=== PATIENT | male | born 1985 | race Caucasian/White ===

== ENCOUNTER 2019-09-25 08:06 | Emergency (ER) | payer OTHER ==
[2019-09-25 08:14] VITALS: TEMP 98.3
[2019-09-25] MEDS ORDERED: LIDOCAINE 1% INJ 10MG/ML (20 ML MDV) SQ ONE (08:20)
--- NOTE | 2019-09-25 08:22 | ED ---
Upper Extremity HPI - General Chief Complaint: Extremity Injury, Upper Stated Complaint: finger injury Time Seen by Provider: 09/25/19 08:15 Source: patient, RN notes reviewed Mode of arrival: ambulatory Limitations: no limitations - History of Present Illness Initial Comments: 33-year-old male presents emergency Department chief complaint laceration to his left hand fifth digit. Patient states that he was crying off the excess metal on a part. Patient states a guard was not completely bolted on states that he caught his finger on it. He is [id number] he states his tetanus is up-to-date within last 5 years. No paresthesias no decreased range of motion. - Related Data Previous Rx's Medication Instructions Recorded Cephalexin [Keflex] 500 mg PO Q6HR #28 cap 09/25/19 Allergies Allergy/AdvReac Type Severity Reaction Status Date / Time No Known Allergies Allergy Verified 09/25/19 08:14 Review of Systems ROS Statement: Those systems with pertinent positive or pertinent negative responses have been documented in the HPI. ROS Other: All systems not noted in ROS Statement are negative. Past Medical History Past Medical History: No Reported History History of Any Multi-Drug Resistant Organisms: None Reported Past Surgical History: No Surgical Hx Reported Past Psychological History: No Psychological Hx Reported Smoking Status: Former smoker Past Alcohol Use History: Occasional Past Drug Use History: Marijuana General Exam Limitations: no limitations General appearance: alert, in no apparent distress Head exam: Present: atraumatic, normocephalic, normal inspection Eye exam: Present: normal appearance, PERRL, EOMI. Absent: scleral icterus, conjunctival injection, periorbital swelling ENT exam: Present: normal exam, normal oropharynx, mucous membranes moist Neck exam: Present: normal inspection, full ROM. Absent: tenderness, meningismus, lymphadenopathy Respiratory exam: Present: normal lung sounds bilaterally. Absent: respiratory distress, wheezes, rales, rhonchi, stridor Cardiovascular Exam: Present: regular rate, normal rhythm, normal heart sounds. Absent: systolic murmur, diastolic murmur, rubs, gallop, clicks Extremities exam: Present: other (Left hand 2 cm laceration over the dorsal aspect of the fifth digit full range of motion neurovascular intact) Course Vital Signs 09/25/19 08:10 Temperature 98.3 F Pulse Rate 81 Respiratory 18 Rate Blood Pressure 172/92 O2 Sat by Pulse 99 Oximetry Procedures - Laceration Laceration #1 Consent Obtained: written consent Indication: laceration Site: upper extremity (Left hand fifth digit) Size (cm): 2 Description: linear Depth: simple, single layer Anesthetic Used: lidocaine 1%, without epi Anesthesia Technique: local infiltration Amount (mls): 5 Pre-repair: wound explored, irrigated extensively, deep structures intact, foreign body removed Type of Sutures: nylon Size of Sutures: 4-0 Number of Sutures: 4 Technique: simple, interrupted Patient Tolerated Procedure: well, no complications Medical Decision Making - Medical Decision Making X-ray was obtained, shows superficial foreign bodies, no bony injury. Patient's wound was thoroughly cleaned, foreign body removed, patient was placed on antibiotics with close follow-up. Disposition Clinical Impression: Laceration of finger of left hand Disposition: HOME SELF-CARE Condition: Stable Instructions (If sedation given, give patient instructions): Care For Your Stitches (ED), Finger Laceration (ED) Additional Instructions: Have sutures removed in 10 days.Please return to the Emergency Department if symptoms worsen or any other concerns. Prescriptions: Cephalexin [Keflex] 500 mg PO Q6HR #28 cap Is patient prescribed a controlled substance at d/c from ED?: No Referrals: Reed Harper MD [Primary Care Provider] - 1-2 days Time of Disposition: 09:28
--- NOTE | 2019-09-25 08:59 | XR ---
Fifth digit left hand HISTORY: Laceration 3 views of the fifth digit of the left hand There are punctate metallic density seen on the oblique view dorsal aspect of the proximal interphala ngeal joint, consistent with small foreign bodies. No fracture or dislocation. IMPRESSION: Suspect multiple punctate foreign bodies, at least 10 are suspected.
[2019-09-25 09:42] VITALS: BP 123/74; PULSE 78; RESP 16
== END 2019-09-25 09:36 | disposition home or self-care (01) ==
LOC: EC 08:06
DX: S61.227A Laceration with foreign body of left little finger without damage to nail, initial encounter (principal); Z87.891 Personal history of nicotine dependence; X58.XXXA Exposure to other specified factors, initial encounter; Y92.69 Other specified industrial and construction area as the place of occurrence of the external cause; Y99.0 Civilian activity done for income or pay
CPT/HCPCS: 73140; 99283; 12031; J2001

== ENCOUNTER → 2020-11-27 | Outpatient (CLI) | payer OTHER ==
--- NOTE | 2020-11-27 10:46 | US ---
EXAMINATION TYPE: US liver DATE OF EXAM: 11/27/2020 COMPARISON: NONE CLINICAL HISTORY: R74.8 Elevated liver enzymes. elevated liver enzymes EXAM MEASUREMENTS: Liver Length: 18.6 cm Gallbladder Wall: 0.2 cm CBD: 0.4 cm Right Kidney: 12.6 x 5.7 x 4.8 cm Technical limitations due to overlying bowel content Pancreas: Obscured by bowel gas Liver: enlarged, attenuating Gallbladder: multiple small stones Evidence for sonographic Gupta's sign: no CBD: appears wnl Right Kidney: no evidence of hydronephrosis IMPRESSION: 1. Hepatomegaly with underlying fatty hepatic infiltration. 2. Cholelithiasis.
== END | disposition home or self-care (01) ==
LOC: RADUSWWP 10:12
PROVIDERS: ATTEND Family Medicine
DX: K76.0 Fatty (change of) liver, not elsewhere classified (principal); K80.20 Calculus of gallbladder without cholecystitis without obstruction
CPT/HCPCS: 76705

== ENCOUNTER → 2023-05-25 | Outpatient (CLI) | payer OTHER ==
--- NOTE | 2023-05-25 14:24 | US ---
EXAMINATION TYPE: US arterial LE multi level DATE OF EXAM: 05/25/2023 2:09 PM CLINICAL INDICATION: Male, 37 years old with history of R09.89 SYM OF CIRCULATORY SYSTEM; History of: Smoker: Current Hypertension: Yes Diabetic: No Hyperlipidemia: No TIA/CVA: No Previous Vascular Surgery: No CAD: No PA: No Vascular Ulcers: No Claudication: Yes Gangrene: NO Right Brachial Pressure: 110 Left Brachial Pressure: 117 Ankle-Brachial Indices: Right: 0.66 Left: 0.77 Toe Brachial Indices: Right: 0.50 Left: 0.49 IMPRESSION: Abnormal ankle-brachial indices bilaterally suggestive of mild to moderate peripheral ar terial disease.
== END | disposition home or self-care (01) ==
LOC: RADUSWWP 12:51
PROVIDERS: ATTEND Family Medicine
DX: I10 Essential (primary) hypertension (principal); R09.89 Other specified symptoms and signs involving the circulatory and respiratory systems; Z87.891 Personal history of nicotine dependence
CPT/HCPCS: 93923

== ENCOUNTER → 2023-07-29 | Day surgery (SDC) | payer OTHER ==
[~2023-07-29] MED LIST: ALPRAZolam 0.25 MG TAB PO PRN; ASPIRIN 325 MG TAB PO PRN; HEPARIN SODIUM 1,000 UN/ML (10ML VL) IV ONE; HEPARIN SODIUM 1,000 UN/ML (10ML VL) ONE; IOPAMIDOL-370 100ML BTL INJ ONE; LIDOCAINE 1% INJ 10MG/ML (20 ML MDV) ONE; MIDAZOLAM 2 MG/2 ML VIAL IVP ONE; NALOXONE 0.4 MG/ML 1 ML VIAL IVP PRN; SODIUM CHLORIDE 0.9% 1,000 ML in EMPTY BAG 1 BAG IV ONE; SODIUM CHLORIDE 0.9% 1,000 ML in EMPTY BAG 1 BAG IV SCH; VERAPAMIL 2.5 MG/ML 2 ML AMP ONE; VERAPAMIL SYRINGE (5 MG/10 ML) INTRAARTER ONE; fentaNYL (PF) 50 MCG/1 ML VIAL IVP ONE; fentaNYL (PF) 50 MCG/ML 2 ML AMP ONE
[2023-07-29 07:54] LABS: Basophils # (A) 0.1 k/uL (0-0.2); Basophils % (A) 1 %; Eosinophils # (A) 0.2 k/uL (0-0.7); Eosinophils % (A) 2 %; HCT 46.1 % (39.0-53.0); HGB 15.3 gm/dL (13.0-17.5); Lymphocytes # (A) 2.3 k/uL (1.0-4.8); Lymphocytes % (A) 33 %; MCH 31.7 pg (25.0-35.0); MCHC 33.3 g/dL (31.0-37.0); MCV 95.2 fL (80.0-100.0); Mean Platelet Volume 6.7; Monocytes # (A) 0.4 k/uL (0-1.0); Monocytes % (A) 6 %; Neutrophils # (A) 3.8 k/uL (1.3-7.7); Neutrophils % (A) 55 %; Platelet Count 327 k/uL (150-450); RBC 4.85 m/uL (4.30-5.90); RDW 12.4 % (11.5-15.5); WBC 6.9 k/uL (3.8-10.6)
[2023-07-29 08:05] LABS: African American GFR (CKD) >90 (>60 ml/min/1.73 sqM); Anion Gap 12 mmol/L; Blood Urea Nitrogen 16 mg/dL (9-20); Calcium 9.8 mg/dL (8.4-10.2); Carbon Dioxide 26 mmol/L (22-30); Chloride 102 mmol/L (98-107); Glucose 91 mg/dL (74-99); Non-African American GFR(CKD) >90 (>60 ml/min/1.73 sqM); Potassium 4.3 mmol/L (3.5-5.1); Sodium 140 mmol/L (137-145)
[2023-07-29 08:31] VITALS: TEMP 97.6
[2023-07-29] MEDS: LIDOCAINE 1% INJ 10MG/ML (20 ML MDV) SQ ONE ×2 (09:29→09:38)
--- NOTE | 2023-07-29 10:07 | P.PCN ---
Date of Procedure: 07/29/23 Operative Findings: AN ABDOMINAL AORTOGRAM AND BILATERAL LOWER EXTREMITIES RUNOFF PERFORMING PHYSICIAN: Gino Ordonez MD PROCEDURE PERFORMED: 1. An abdominal aortogram 2. Bilateral lower extremities runoff 3. Ultrasound guided access of the right radial artery and right common femoral artery INDICATION: Bilateral lower extremity is intermittent claudication and this 37-year-old gentleman who underwent an ankle brachial index and came in to be abnormal bilaterally COMPLICATION: None LEVEL OF SEDATION: Moderate was sedation length of 22 APPROACH: Right common femoral artery PROCEDURE DESCRIPTION: After obtaining an informed consent the patient was brought to the cardiac microbiology laboratory manager. Initially the right common femoral artery was cannulated using micropuncture technique under ultrasound guidance the micropuncture wire passed easily then I placed the micropuncture sheath over the micropuncture wire but attempting advancing an 035 Glidewire was unsuccessful with a hint of occluded iliac and for that reason I decided to abort the femoral approach and go with a right radial approach. The right radial artery was cannulated using micropuncture technique under ultrasound guidance the micropuncture wire passed easily then I placed a 6-Sami sheath at the right radial artery and I gave the patient 2 mg of verapamil intra-arterial and only 3000 use of heparin intra- venous. An abdominal aortogram and bilateral lower extremity runoff was performed with the catheter initially placed at the level of the renal arteries and it was advanced down to the distal aorta which was occluded angiographically. The procedure was completed and there was no complications. SELECTIVE PERIPHERAL ANGIOGRAM: The abdominal aorta: Is occluded at the infrarenal level The common iliac arteries: Occluded bilaterally The external iliac arteries: Occluded bilaterally The internal iliac arteries: Not well-opacified The common femoral arteries: Appears to be patent Superficial femoral arteries: Appeared to be patent Popliteal arteries: Not well-opacified Below the knees: Not well-opacified CONCLUSION: Occluded infrarenal aorta POSTPROCEDURE MANAGEMENT: The patient will benefit from aortobifem
--- NOTE | 2023-07-29 10:35 | IR ---
EXAMINATION TYPE: IR angio abdominal w runoff DATE OF EXAM: 07/29/2023 COMPARISON: NONE HISTORY: Fluoroscopy time. Fluoroscopy was provided to the referring clinician.
[2023-07-29 13:04] VITALS: BP 141/68; PULSE 64; RESP 16
== END ==
LOC: CATHCVL 07:19
PROVIDERS: ATTEND Internal Medicine Interventional Cardiology
DX: I73.9 Peripheral vascular disease, unspecified (principal); I10 Essential (primary) hypertension; F17.210 Nicotine dependence, cigarettes, uncomplicated; Z82.49 Family history of ischemic heart disease and other diseases of the circulatory system; Z79.82 Long term (current) use of aspirin; Z79.899 Other long term (current) drug therapy
CPT/HCPCS: 36200; 75625; 75716; 80048; 85025; C1769 ×4; C1894 ×2; J2250; J2001; J1644; Q9967; J3010